=== PATIENT | male | born 2000 | race African-American/Black ===

== ENCOUNTER 2020-01-07 07:57 | Emergency (ER) | payer OTHER, SELFPAY ==
--- NOTE | ~2020-01-07 | CT_ITS ---
EXAMINATION: CT abdomen pelvis wo con DATE: 01/07/2020 09:07 INDICATION: Left lower abdominal pain. Hematuria. TECHNIQUE: Computed tomography (CT) of the abdomen and pelvis was performed without intravenous contr ast. Automated exposure control and iterative reconstruction technique were employed. Exam dose: 250 .93 mGy-cm total exam DLP. COMPARISON: None. FINDINGS: The included lung bases are clear. Normal heart size. No pericardial or pleural effusion. The liver, gallbladder, bile ducts, spleen, pancreas, pancreatic duct, and adrenal glands and kidneys appear unremarkable on this limited noncontrast examination. No urinary tract calculus or hydrourete ronephrosis is evident. The urinary bladder and prostate gland and seminal vesicles are unremarkable. Normal caliber of the abdominal aorta. No intraperitoneal, retroperitoneal or pelvic mass lesion or a denopathy or ascites is evident. No intraperitoneal free air. There is no CT evidence of appendicitis . IMPRESSION: No urinary tract calculus or hydroureteronephrosis or other significant abnormality is i dentified Reviewed, dictated and finalized at [facility]. Reviewed, dictated and finalized at [facility]. IMPRESSION: No urinary tract calculus or hydroureteronephrosis or other signif icant abnormality is identified
--- NOTE | ~2020-01-07 | XR_ITS ---
XR abdomen/kub 1V DATE: 01/07/2020 09:11 INDICATION: Lower abdominal pain. Hematuria. TECHNIQUE: AP projection, 2 views COMPARISON: 01/07/[address] abdomen pelvis FINDINGS: Dextroscoliosis of the thoracolumbar spine. The lower lung zones are clear. Heart size appears normal. The psoas shadows are intact. No visceromegaly is evident. The bowel gas pattern is unremarkable, wit hout evidence of obstruction. Bilateral calcified pelvic phleboliths. IMPRESSION: Nonspecific abdomen Reviewed, dictated and finalized at [facility]. Reviewed, dictated and finalized at [facility]. IMPRESSION: Nonspecific abdomen
[2020-01-07 08:03] VITALS: BP 117/74; PULSE 67; RESP 20; TEMP 36.5; O2SAT 98
--- NOTE | 2020-01-07 08:17 | ED.ABDPAIN ---
HPI - Abdominal Pain General Chief Complaint: Abdominal Pain Stated Complaint: recurrrent low abd pain Time Seen by Provider: 01/07/20 08:09 Source: patient Mode of arrival: ambulatory Limitations: no limitations History of Present Illness HPI narrative: This patient is a 19 year old male who presents for evaluation of left lower abdominal pain for 1.5 years. He reports pain is constant with intermittent sharp. He has no associated symptoms. He has come in to be evaluated because he finally told his mother who told him to come to ER. MD elicited complaint: abdominal pain Onset (ago): year(s) Pain Consistency: constant Location: LLQ Quality: sharp Radiation: none Migration to: no migration Relieving factors: nothing Related Data Home Medications Medication Instructions Recorded Confirmed No Home Medications 01/07/20 01/07/20 Allergies Allergy/AdvReac Type Severity Reaction Status Date / Time No Known Allergies Allergy Verified 01/07/20 08:06 Review of Systems Review of Systems: All systems reviewed & are unremarkable except as noted in HPI and below Constitutional: Constitutional: Denies chills and Denies fever(s) Gastrointestinal: Gastrointestinal: Reports abdominal pain, Denies diarrhea, Denies nausea and Denies vomiting Genitourinary: Genitourinary: Denies hematuria, Denies oliguria, Denies dysuria, Denies penile discharge and Denies urinary frequency Musculoskeletal: Musculoskeletal: Denies back pain PMFSH Past Medical History Medical History (Updated 01/07/20 @ 09:54 by Kianna Quintana MD) Patient denies medical problems Surgical History Surgical History (Updated 01/07/20 @ 08:17 by Kianna Quintana MD) No pertinent past surgical history Social History Social History (Updated 01/07/20 @ 08:17 by Kianna Quintana MD) Smoking status: Never smoker Alcohol intake: current Alcohol use details: socially Substance use type: marijuana Gender identity (if verbalized by the patient): Male Exam Narrative: Exam Narrative: GENERAL: Well-appearing, well-nourished, and in no acute distress. HEAD: Normocephalic, atraumatic EYES: PERRLA and EOMI, conjunctiva clear without discharge NECK: Supple, without lymphadenopathy or mass RESPIRATORY: No respiratory distress, Airway patent, Respirations non-labored, Clear to auscultation without rales, rhonchi or wheeze HEART: Regular rate and rhythm. No murmur heard. Normal peripheral pulses. ABDOMEN: Soft, nontender, nondistended, normal active bowel sounds. No masses. No rebound or guarding, No organomegaly. EXTREMITIES: No edema, normal strength with full range of motion. SKIN: Warm, dry, normal color without rash NEURO: Alert and oriented x3. CN 2-12 grossly intact. No focal deficits. PSYCH: Normal mood and affect. Course Reevaluation(s) Reevaluation #1: I Discussed with patient CT and labs . Patient is now stating he told triage nurse that he was actually here for loss of taste, cough that started 3 weeks ago. Patient did not every state those symptoms to me during my examination, but his story has changed since his mother has come into the room. He has no fever and labs are unremarkable. Lungs are clear on CT scan. He is not hypoxic or tachycardic. Patient is PERC negative. I expressed that test is likely to be negative since symptoms are have been longer than 3 weeks. His mother ask for him to still be tested. Date: 01/07/20 Time: 09:49 Vital Signs Vital signs: Vital Signs Temperature 97.7 F 01/07/20 08:03 Pulse Rate 67 01/07/20 08:03 Respiratory Rate 20 01/07/20 08:03 Blood Pressure 117/74 01/07/20 08:03 Pulse Oximetry 98 01/07/20 08:03 Temperature 97.7 F 01/07/20 09:40 Pulse Rate 62 01/07/20 10:08 Respiratory Rate 18 01/07/20 10:08 Blood Pressure 129/75 01/07/20 10:08 Pulse Oximetry 100 01/07/20 10:08 MDM - Abdominal Pain Lab Data Result diagrams: 0
[2020-01-07 08:28] LABS: Basophils Percent Auto 0.2 % (0.2-1.2); Eosinophils Absolute Auto 0.1 K/mm3 (0-0.3); Eosinophils Percent Auto 0.9 % (0-4.4); Hematocrit 42.6 % (42.0-52.0); Immature Granulocyte Absolute 0.03 K/mm3 (0.00-0.031); Immature Granulocyte Percent A 0.4 % (0-0.5); Lymphocytes Absolute Auto 2.46 K/mm3 (0.9-3.2); Lymphocytes Percent Auto 30.3 % (18.3-44.2); Mean Corpuscular HGB Conc 32.9 g/dl (32-36); Mean Corpuscular Hemoglobin 27.2 pg (26-34); Mean Corpuscular Volume 82.9 fl (80-100); Mean Platelet Volume 9.8 fl (7.4-10.4); Monocytes Absolute Auto 0.6 K/mm3 (0.1-0.6); Monocytes Percent Auto 6.8 % (2.6-8.5); Neutrophils Percent Auto 61.4 % (45.5-73.1); Platelet Count Result 183 k/mm3 (150-375); Red Blood Count 5.14 M/mm3 (4.6-6.20); Red Cell Distribution Width 12.6 % (11.5-14.5); White Blood Count 8.1 K/mm3 (4.5-10.0)
[2020-01-07 08:36] LABS: Add Urine Microscopic? YES; Appearance Urine Clear (Clear); Bacteria Urine Trace /hpf; Bilirubin Urine Negative (Negative); Blood Urine Negative (Negative); Color Urine Yellow (Yellow); Glucose Urine UA Negative (Negative); Ketones Urine Negative (Negative); Leukocyte Esterase Ur Negative LEU/UL (Negative); Mucus Urine Few /lpf; Nitrate Urine Negative (Negative); Protein Urine 1+ mg/dL (Negative); Urobilinogen Urine Negative mg/dL (<2.0); WBC Urine 0-3 /hpf
[2020-01-07 08:38] LABS: Specific Grav Ur 1.031 (1.001-1.035)
[2020-01-07] MEDS: IBUPROFEN 600 MG TABLET PO (08:40)
[2020-01-07 09:02] LABS: Alanine Aminotransferase 20 U/L (4-50); Albumin Level 4.5 g/dL (3.5-5.1); Alkaline Phosphatase 52 U/L (38-126); Anion Gap 13.1 mmol/L (7-16); Aspartate Amino Transferase 26 U/L (17-59); Bilirubin,Total 0.7 mg/dL (0.2-1.3); Blood Urea Nitrogen 16 mg/dL (9-20); Calcium 9.2 mg/dL (8.4-10.2); Carbon Dioxide 24 mmol/L (22-30); Chloride 107 mmol/L (98-107); Estimated CRCL calculation 114 ml/min; Estimated Glomerular Filt Rate > 60; Glucose 92 mg/dL (75-110); Lipase 96 U/L (23-300); Potassium 4.1 mmol/L (3.4-5.0); Sodium 140 mmol/L (137-145)
[2020-01-07 09:40] VITALS: TEMP 36.5
[2020-01-07 10:08] VITALS: BP 129/75; PULSE 62; RESP 18; O2SAT 100
[2020-01-07 23:05] LABS: SARS-CoV-2 RNA PCR Negative
== END 2020-01-07 10:09 | disposition home or self-care (01) ==
PROVIDERS: Emergency Provider General Practice
DX: R10.32 Left lower quadrant pain (principal); G89.29 Other chronic pain; Z20.828 Contact with and (suspected) exposure to other viral communicable diseases
CPT/HCPCS: 36415; 74018; 74176; 80053; 81001; 83690; 85025; 87635; 99284; A9270; C9803; U0003